=== PATIENT | male | born 1965 | race Caucasian/White ===

== ENCOUNTER → 2016-11-06 06:44 | Day surgery (SDC) | payer OTHER ==
--- NOTE | 2016-11-02 00:28 | HP ---
CC: Dr. Natalio Awad, Family Medicine * ADMISSION HISTORY AND PHYSICAL: DATE OF ADMISSION/SURGERY: 11/06/16 ATTENDING SURGEON: Dr. Antione Rubio * (DICTATED BY LEOPOLDO BUI) CHIEF COMPLAINT: Left inguinal hernia. HISTORY OF PRESENT ILLNESS: This is a 51-year-old male referred by Dr. Awad for evaluation of left groin pain. Patient states that over the past 10 or more years, he has had intermittent sharp pain in the left groin typically following more strenuous activities. These episodes of pain have increased particularly in the past few months and especially on the weekends when he is more physically active. He describes a sharp stabbing-type pain in the left groin, which is occasionally enough to double him over, though usually self- limited. Of late, the pain has been persistent for a period of days before it gradually abates. He denies any change in GI or function. He has not had anything to suggest true incarceration or strangulation. He was seen in the office by Dr. Rubio on 10/25/16 and again today. Exam has confirmed the presence of a small to moderate sized reducible tender left inguinal hernia. No hernia was noted on the right or at the umbilicus. Dr. Rubio has outlined to the patient the indications for surgery. The risks, benefits, and alternatives including laparoscopic versus open approach. Patient understands the expected perioperative course and would like to proceed as scheduled with open repair left inguinal hernia with mesh. PAST MEDICAL HISTORY: Hypertension, GERD, anxiety and depression, obesity. He states that he did sustain an AR about 5 years ago, though his catheterization at that time was normal and subsequent followup with Cardiology was also unremarkable and he has not required further Cardiology followup. PAST SURGICAL HISTORY: His only previous surgery is an appendectomy remotely. CURRENT MEDICATIONS: 1. Omeprazole 40 mg once daily. 2. Metoprolol 50 mg extended release 2 tablets q.a.m. 3. Lisinopril 10 mg daily. 4. Hydrochlorothiazide 25 mg daily. 5. Paroxetine 20 mg daily. 6. Aspirin 81 mg daily (which patient had stopped for his colonoscopy last month, but was told he may resume it and continue it during the perioperative period). 7. Trazodone 50 mg q.h.s. 8. Alprazolam 0.5 mg 1 tablet p.r.n. anxiety (typically uses 4 to 5 tablets per month). DRUG ALLERGIES: PENICILLIN and SULFA (both cause throat swelling and hives). FAMILY HISTORY: Noncontributory in terms of anesthesia problems, bleeding or clotting disorders. SOCIAL HISTORY: Patient is . He has grown children. 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 He is a former smoker of 1 pack per day for 10 to 12 years. He quit approximately 10 years ago. He drinks on an average 3 to 4 drinks per month. He denies other recreational drug use. REVIEW OF SYSTEMS: General: No recent constitutional symptoms or acute illnesses. He states that his weight increases a little bit each year. HEENT: No problems reported. Cardiovascular: No chest pain, palpitations. He is treated for hypertension. He has good activity tolerance, though it is somewhat limited by his current hernia. Respiratory: No history of asthma, chronic cough or shortness of breath. GI: No problems reported. He did undergo colonoscopy on 10/12/16 with removal of 2 benign polyps and recommended 10-year followup. : No problems reported. Endocrine: No diabetes or thyroid dysfunction. Neuro/Psych: History of anxiety and depression as well as insomnia. PHYSICAL EXAMINATION GENERAL: Well-nourished, obese male in no acute distress. VITAL SIGNS: Height 69 inches, weight 250 pounds. Temperature 98.4, blood pressure 128/80, pulse 64, respirations 16. HEENT: Pupils are equal, round, reactive. EOMs intact. No conjunctival pallor. Oropharynx: Teeth in good repair. No intraoral lesions. NECK: No lymphadenopathy, thyromegaly or masses. LUNGS: Clear to auscultation. No rales or wheezes. HEART: Regular rate and rhythm. No murmur noted. ABDOMEN: Obese, soft, nontender to palpation. No palpable masses or organomegaly. Left inguinal hernia as noted above per Dr. Rubio's exam, which I did not repeat today. Testes also as per Dr. 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 BACK: No spinous process or CVA tenderness. EXTREMITIES: No edema. NEUROLOGICAL: Grossly intact. SKIN: Warm and dry. No suspicious rashes or lesions noted. IMPRESSION: Left inguinal hernia. PLAN: Open repair left inguinal hernia with mesh. LEOPOLDO BUI [id number]/[facility] #: [id number] [facility]
[~2016-11-06 06:44] MED LIST: Acetaminophen TAB* 325 MG PO PRN; Buffered Lidocaine 0.9% SYRIN* 5 ML/SYR SYRINGE INTRADERM ONE; Bupivacaine 0.5% SDV PF* 30 ML VIAL ONE; Clindamycin 900 MG IVPREMIX(* 900 MG/50 ML SDV IV ONE; Dexamethasone IV* 4 MG/ML 1 ML (4 MG) ONE; EPHEDrine (Pressors)* 50 MG/ML VIAL ONE; Famotidine IV* 10 MG/ML 2 ML (20 mg) ONE; HYDROmorphone INJ* 1 MG/ML CARPUJECT SYRINGE ONE; Ketorolac INJ* 30 MG/ML 1 ML VIAL ONE; Lidocaine 1% MPF wEPI 200,000* 30 ML SDV ONE; Lidocaine 2% PF * 5 ML VIAL ONE; Midazolam* 1 MG/ML 2 ML VIAL (2 MG) ONE; Ondansetron INJ* 2 MG/ML VIAL IV PRN; PROCHLORPERAZINE INJ 5 MG/ML 2 ML VIAL IV PRN; Propofol* 10 MG/ML 20 ML BTL IV PUSH ONE; fentaNYL* 50 MCG/ML 2 ML VIAL (100 MCG VIAL) IV PRN; fentaNYL* 50 MCG/ML 2 ML VIAL (100 MCG VIAL) ONE; oxyCODONE/Acetamin 5/325 MG* TAB ONE; oxyCODONE/Acetamin 5/325 MG* TAB PO PRN
[2016-11-06 15:06] VITALS: BP 126/82
--- NOTE | 2016-11-07 11:15 | OP ---
CC: [facility]; Dr. Natalio Awad.* OPERATIVE REPORT: DATE OF OPERATION: 11/06/16 - [facility] DATE OF : 67 SURGEON: Dr. Rubio. CURRICULUM WRITER: LEOPOLDO Peguero ANESTHESIOLOGIST: Dr. Miranda. ANESTHESIA: General with local. PRE-OP DIAGNOSIS: Left inguinal hernia. POST-OP DIAGNOSIS: Left direct inguinal hernia. OPERATIVE PROCEDURE: Open repair of a left direct inguinal hernia using a ProGrip Covidien self-adhering mesh. ESTIMATED BLOOD LOSS: Minimal. WOUND CLASSIFICATION: 1. COMPLICATIONS: None. DRAINS: None. DESCRIPTION OF PROCEDURE: Written and informed consent was obtained, the left groin was marked with indelible ink and preoperative antibiotics were administered. The patient was taken to the operating room and placed in a supine position. Sequential compression devices and a warming blanket were applied. General anesthesia was administered. The left groin and lower abdomen were prepped and draped in the usual sterile fashion. Initially a time-out verification was completed. 0.5% Marcaine mixed with 1% lidocaine with epinephrine was infiltrated extensively to left groin. An oblique incision was made several finger breaths above the inguinal crease, carried down through scarps fascia. The external oblique aponeurosis and external ring were identified. These were opened in the direction of its fibers to expose the underlying spermatic cord. The patient is somewhat obese and there was quite a bit of a fat within the spermatic cord, but I was able to encircle this with a one-quarter inch [place] drain at the pubic tubercle. The cord structures were identified and protected from injury throughout. It was apparent that there was a direct space hernia, which we were able to separate from the cord structures and involved almost the entire floor of the direct space. I identified no indirect inguinal hernia, but there was cord lipoma, which was excised and not sent for pathology. Once the anatomy had been identified and the hernia reduced, I used a Covidien ProGrip mesh sutured to the pubic tubercle medially, the conjoint tendon superiorly, the musculature laterally with interrupted 0-Polysorb suture. It was secured to inguinal ligament inferiorly with a running 0-Polysorb suture. The mesh covered the direct and indirect space nicely. Hemostasis was assured. Additional Marcaine was infiltrated. The external oblique aponeurosis was closed with running 3-0 Polysorb suture. Scarpas fascia was closed with interrupted 3-0 Polysorb suture. The skin was approximated with subcuticular 4- 0 Polysorb suture. Steri-strips and sterile dressings were applied. The patient tolerated the procedure well, was taken to the recovery room in stable condition. [id number] #: [id number] MTDD
== END | disposition home or self-care (01) ==
LOC: OR 06:44
PROVIDERS: ATTEND Surgery
DX: K40.90 Unilateral inguinal hernia, without obstruction or gangrene, not specified as recurrent (principal); D17.6 Benign lipomatous neoplasm of spermatic cord; E66.9 Obesity, unspecified; I10 Essential (primary) hypertension; K21.9 Gastro-esophageal reflux disease without esophagitis; F41.9 Anxiety disorder, unspecified; F32.9 Major depressive disorder, single episode, unspecified; I25.2 Old myocardial infarction; I25.10 Atherosclerotic heart disease of native coronary artery without angina pectoris; Z79.82 Long term (current) use of aspirin; Z88.0 Allergy status to penicillin; Z88.2 Allergy status to sulfonamides; Z87.891 Personal history of nicotine dependence; Z68.37 Body mass index [BMI] 37.0-37.9, adult
CPT/HCPCS: A9270-GY; J1100; J1170; J1885; J2001; J2250; J2704; J3010